=== PATIENT | female | born 1970 | race Caucasian/White ===

== ENCOUNTER 2021-04-20 01:45 | Emergency (ER) | payer OTHER ==
[~2021-04-20] VITALS: Ht 172.7 cm; Wt 54.4 kg
--- NOTE | 2021-04-20 02:03 | ED Psychosocial ---
General Stated Complaint: SHAKING UNCONTROLLABLY Source: patient Exam Limitations: no limitations History of Present Illness Date Seen by Provider: Apr 20, 2021 Time Seen by Provider: 01:52 Initial Comments 50-year-old female with past medical history of hypertension, hyperlipidemia, and alcohol use disorder coming in due to arm shaking. She says she normally drinks about 1/5 of whiskey a day and last had a drink around 7 PM. Started feeling like her body was shaking a couple hours ago and she is unable to stop it. This is never happened before. She says she has been under a lot of stress and had to close people within the past week. Denies any chest pain, shortness of breath, abdominal pain, current nausea, vomiting, diarrhea, weakness, numbness, fever, chills, rash, or any other concerns Allergies and Home Medications Allergies Coded Allergies: No Known Drug Allergies (Unverified , 04/20/21) Patient Home Medication List Home Medication List Reviewed: Yes Review of Systems Constitutional: No chills, No fever EENTM: No blurred vision Respiratory: no symptoms reported Cardiovascular: no symptoms reported Gastrointestinal: no symptoms reported Musculoskeletal: no symptoms reported Skin: no symptoms reported Psychiatric/Neurological: Anxiety All Other Systems Reviewed Negative Unless Noted: Yes Past [id number] Hx Patient Social History Tobacco Use?: Yes Substance use?: No Alcohol Use?: Yes Past Medical History Surgeries: No Physical Exam Vital Signs - First Documented Capillary Refill : Height, Weight, BMI Height: '" Weight: lbs. oz. kg; BMI Method: General Appearance: WD/WN, no apparent distress, other (shaking right arm, moving it around voluntarily, she is able to suppress it if asked) HEENT: PERRL/EOMI, normal ENT inspection, pharynx normal Neck: non-tender, full range of motion, supple, normal inspection Respiratory: chest non-tender, lungs clear, normal breath sounds, no re spiratory distress, no accessory muscle use Cardiovascular: regular rate, rhythm, no edema, no murmur Gastrointestinal: normal bowel sounds, non tender, soft; No distended, No guarding, No rebound Extremities: normal range of motion, non-tender, normal inspection, no pedal edema, no calf tenderness, normal capillary refill Neurologic/Psychiatric: no motor/sensory deficits, alert, normal mood/affect Appearance/Memory: appropriate appearance, appropriate insight Behavior/Eye Contact: cooperative, good eye contact Thoughts/Hallucinations: normal thought pattern, no apparent hallucination Skin: normal color, warm/dry Lymphatic: no adenopathy Progress/Results/Core Measures Results/Orders Lab Results Laboratory Tests Test 04/20/21 02:01 04/20/21 02:41 Range/Units White Blood Count 8.8 4.3-11.0 10^3/uL Red Blood Count 4.31 3.80-5.11 10^6/uL Hemoglobin 15.0 11.5-16.0 g/dL Hematocrit 42 35-52 % Mean Corpuscular Volume 97 80-99 fL Mean Corpuscular Hemoglobin 35 H 25-34 pg Mean Corpuscular Hemoglobin Concent 36 32-36 g/dL Red Cell Distribution Width 12.4 10.0-14.5 % Platelet Count 270 130-400 10^3/uL Mean Platelet Volume 9.0 9.0-12.2 fL Immature Granulocyte % (Auto) 0 % Neutrophils (%) (Auto) 55 42-75 % Lymphocytes (%) (Auto) 34 12-44 % Monocytes (%) (Auto) 9 0-12 % Eosinophils (%) (Auto) 1 0-10 % Basophils (%) (Auto) 1 0-10 % Neutrophils # (Auto) 4.8 1.8-7.8 10^3/uL Lymphocytes # (Auto) 3.0 1.0-4.0 10^3/uL Monocytes # (Auto) 0.8 0.0-1.0 10^3/uL Eosinophils # (Auto) 0.1 0.0-0.3 10^3/uL Basophils # (Auto) 0.1 0.0-0.1 10^3/uL Immature Granulocyte # (Auto) 0.0 0.0-0.1 10^3/uL Sodium Level 139 135-145 MMOL/L Potassium Level 3.9 3.6-5.0 MMOL/L Chloride Level 100 98-107 MMOL/L Carbon Dioxide Level 18 L 21-32 MMOL/L Anion Gap 21 H 5-14 MMOL/L Blood Urea Nitrogen 5 L 7-18 MG/DL Creatinine 0.57 L 0.60-1.30 MG/DL Estimat Glomerular Filtration Rate 111 BUN/Creatinine Ratio 9 Glucose Level 94 70-105 MG/DL Calcium Level 10.0 8.5-10.1 MG/DL Corrected Calcium 8.5-10.1 MG/DL Total Bilirubin 0.9 0.1-1.0 MG/DL Aspartate Amino Transf (AST/SGOT) 242 H 5-34 U/L Alanine Aminotransferase (ALT/SGPT) 188 H 0-55 U/L Alkaline Phosphatase 100 40-136 U/L Total Protein 7.7 6.4-8.2 GM/DL Albumin 4.8 H 3.2-4.5 GM/DL Salicylates Level < 5.0 L 5.0-20.0 MG/DL Acetaminophen Level < 10 L 10-30 UG/ML Serum Alcohol 173 H <10 MG/DL Urine Color YELLOW Urine Clarity CLEAR Urine pH 7.0 5-9 Urine Specific [place] <=1.005 1.016-1.022 Urine Protein NEGATIVE NEGATIVE Urine Glucose (UA) NEGATIVE NEGATIVE Urine Ketones NEGATIVE NEGATIVE Urine Nitrite NEGATIVE NEGATIVE Urine Bilirubin NEGATIVE NEGATIVE Urine Urobilinogen 0.2 < = 1.0 MG/DL Urine Leukocyte Esterase NEGATIVE NEGATIVE Urine RBC (Auto) NEGATIVE NEGATIVE Urine RBC NONE /HPF Urine WBC NONE /HPF Urine Squamous Epithelial Cells 0-2 /HPF Urine Crystals NONE /LPF Urine Bacteria NEGATIVE /HPF Urine Casts NONE /LPF Urine Mucus NEGATIVE /LPF Urine Culture Indicated NO Urine Opiates Screen NEGATIVE NEGATIVE Urine Oxycodone Screen NEGATIVE NEGATIVE Urine Methadone Screen NEGATIVE NEGATIVE Urine Propoxyphene Screen NEGATIVE NEGATIVE Urine Barbiturates Screen NEGATIVE NEGATIVE Ur Tricyclic Antidepressants Screen NEGATIVE NEGATIVE Urine Phencyclidine Screen NEGATIVE NEGATIVE Urine Amphetamines Screen NEGATIVE NEGATIVE Urine Methamphetamines Screen NEGATIVE NEGATIVE Urine Benzodiazepines Screen NEGATIVE NEGATIVE Urine Cocaine Screen NEGATIVE NEGATIVE Urine Cannabinoids Screen NEGATIVE NEGATIVE My Orders Orders - MARK DORANTES MD Ua Culture If Indicated (04/20/21 02:03) Cbc With Automated Diff (04/20/21 02:03) Comprehensive Metabolic Panel (04/20/21 02:03) Alcohol (04/20/21 02:03) Drug Screen Stat (Urine) (04/20/21 02:03) Acetaminophen (04/20/21 02:03) Salicylate (04/20/21 02:03) Ekg Tracing (04/20/21 02:03) Ed Iv/Invasive Line Start (04/20/21 02:03) Monitor-Rhythm Ecg Trace Only (04/20/21 02:03) Ed Iv/Invasive Line Start (04/20/21 02:03) Ns Iv 1000 Ml (Sodium Chloride 0.9%) (04/20/21 02:15) Lorazepam Injection (Ativan Injection) (04/20/21 02:15) Medications Given in ED Current Medications Medications Dose Ordered Sig/[place] Route Start Time Stop Time Status Last Admin Dose Admin Lorazepam 1 mg ONCE ONCE IVP 04/20/21 02:15 04/20/21 02:16 DC 04/20/21 02:09 1 MG Sodium Chloride 1,000 ml @ 0 mls/hr Q0M ONCE IV 04/20/21 02:15 04/20/21 02:16 DC 04/20/21 02:13 999 MLS/HR Vital Signs/I&O 04/20/21 04/20/21 04/20/21 04/20/21 01:57 01:57 02:23 02:30 Temp 36.7 36.7 36.7 Pulse 135 135 135 101 Resp 28 26 26 22 B/P (MAP) 167/113 164/113 (130) 164/113 (130) 121/60 Pulse Ox 90 98 98 87 O2 Delivery Room Air Room Air Room Air Room Air 04/20/21 04/20/21 03:00 03:00 Temp 36.4 36.4 Pulse 105 105 Resp 20 20 B/P (MAP) 122/95 122/95 Pulse Ox 90 90 O2 Delivery Room Air Room Air Progress Progress Note : Progress Note 50-year-old female with above history coming in due to body shaking mostly in her right arm. Does not appear seizure-like and she is having a full conversation during the episode. To me it looks similar to a panic attack. An IV was placed and she was given 1 mg of Ativan with complete resolution of the symptoms. She continues to say that there is a lot going on at home including the 2 deaths and she has another friend in ICU right now. She says all of the stress has been weighing on her a lot. Denies any current chest pain and on reassessment she says she is back to her baseline. I believe she is stable for discharge with outpatient follow-up. She was sent home with strict return precautions. Of note, she did have a transaminitis which is likely due to her alcohol intake which I let her know. Her alcohol level was over 100, but her significant other will be driving her home and watching her. Departure Impression Primary Impression: Alcohol use disorder Additional Impressions: Transaminitis Episode of shaking Disposition: 01 HOME, SELF-CARE Condition: Stable Departure-Patient Inst. Decision time for Depature: 02:51 Referrals: NO,LOCAL PHYSICIAN (PCP/Family) Primary Care Physician Patient Instructions: Alcohol Use Disorder (DC) Add. Discharge Instructions: I recommend following up with your regular doctor especially in regards to your liver enzyme levels were elevated which is damage from alcohol. [place] to the ER if you have any significant chest pain, shortness of breath, weakness or numbness on 1 side of your body, or any other concerns MARK DORANTES MD Apr 20, 2021 02:03
[2021-04-20 02:10] LABS: BASOPHILS # (AUTO) 0.1 10^3/uL (0.0-0.1); BASOPHILS % (AUTO) 1 % (0-10); EOSINOPHILS # (AUTO) 0.1 10^3/uL (0.0-0.3); EOSINOPHILS % (AUTO) 1 % (0-10); HEMATOCRIT 42 % (35-52); LYMPHOCYTES % (AUTO) 34 % (12-44); MEAN CORPUSCULAR HEMOGLOBIN 35 pg (25-34); MEAN CORPUSCULAR HGB CONC 36 g/dL (32-36); MEAN CORPUSCULAR VOLUME 97 fL (80-99); MONOCYTES # (AUTO) 0.8 10^3/uL (0.0-1.0); MONOCYTES % (AUTO) 9 % (0-12); NEUTROPHILS # (AUTO) 4.8 10^3/uL (1.8-7.8); NEUTROPHILS % (AUTO) 55 % (42-75); PLATELET COUNT 270 10^3/uL (130-400); WHITE BLOOD COUNT 8.8 10^3/uL (4.3-11.0)
[2021-04-20] MEDS ORDERED: LORazepam INJ 2 MG/ML (ATIVAN) VIAL IVP ONE (02:15)
[2021-04-20] MEDS ORDERED: NS IV 1000 ML 1,000 ML IV ONE (02:15)
[2021-04-20 02:18] LABS: ALBUMIN 4.8 GM/DL (3.2-4.5); CHLORIDE 100 MMOL/L (98-107); POTASSIUM 3.9 MMOL/L (3.6-5.0); SODIUM 139 MMOL/L (135-145)
[2021-04-20 02:21] LABS: GLUCOSE 94 MG/DL (70-105); TOTAL PROTEIN 7.7 GM/DL (6.4-8.2)
[2021-04-20 02:22] LABS: CARBON DIOXIDE 18 MMOL/L (21-32)
[2021-04-20 02:23] LABS: BILIRUBIN,TOTAL 0.9 MG/DL (0.1-1.0)
[2021-04-20 02:25] LABS: ALKALINE PHOSPHATASE 100 U/L (40-136); CREATININE SERUM 0.57 MG/DL (0.60-1.30); GFR ESTIMATED 111
[2021-04-20 02:26] LABS: BUN/CREATININE RATIO 9
[2021-04-20 02:27] LABS: SALICYLATE < 5.0 MG/DL (5.0-20.0)
[2021-04-20 02:28] LABS: ALANINE AMINOTRANSFERASE 188 U/L (0-55)
[2021-04-20 02:37] LABS: ACETAMINOPHEN < 10 UG/ML (10-30)
[2021-04-20 02:49] LABS: BILIRUBIN,URINE NEGATIVE (NEGATIVE); CLARITY,URINE CLEAR; COLOR,URINE YELLOW; GLUCOSE, URINE (UA) NEGATIVE (NEGATIVE); KETONES,URINE NEGATIVE (NEGATIVE); LEUKOCYTE ESTERASE ,URINE NEGATIVE (NEGATIVE); NITRITE,URINE NEGATIVE (NEGATIVE); PROTEIN,URINE NEGATIVE (NEGATIVE)
[2021-04-20 03:00] VITALS: BP 122/95
[2021-04-20 03:03] LABS: AMPHETAMINE SCREEN, URINE NEGATIVE (NEGATIVE); BACTERIA,URINE NEGATIVE /HPF; BARBITURATE SCREEN URINE NEGATIVE (NEGATIVE); BENZODIAZEPINES SCREEN URINE NEGATIVE (NEGATIVE); CANNABINOID SCREEN, URINE NEGATIVE (NEGATIVE); COCAINE SCREEN URINE NEGATIVE (NEGATIVE); METHADONE STAT NEGATIVE (NEGATIVE); METHAMPHETAMINE SCREEN URINE S NEGATIVE (NEGATIVE); OPIATE SCREEN URINE NEGATIVE (NEGATIVE); OXYCODONE STAT NEGATIVE (NEGATIVE); PROPOXYPHENE STAT NEGATIVE (NEGATIVE); SQUAMOUS EPITHELIAL CELL,UR 0-2 /HPF; TRICYCLIC ANTIDEPRESSANTS SCRE NEGATIVE (NEGATIVE)
== END 2021-04-20 03:00 ==
LOC: EDUNIT# 01:45 → ER 01:50
DX: F10.99 Alcohol use, unspecified with unspecified alcohol-induced disorder (principal); R74.01 Elevation of levels of liver transaminase levels; R25.9 Unspecified abnormal involuntary movements; I10 Essential (primary) hypertension; Z72.0 Tobacco use
CPT/HCPCS: 80053; 80306; 81000; 85025; 93005; 93041; 99284; G0480 ×3; 36415; 80320; 80329